=== PATIENT | male | born 1945 | race Caucasian/White ===

== ENCOUNTER 2022-10-27 22:11 | Emergency (ER) | payer MEDICARE, MEDICAID, SELFPAY ==
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
[2022-10-27 22:14] VITALS: BP 144/106; PULSE 87; RESP 20; TEMP 38.1; O2SAT 96
--- NOTE | 2022-10-27 22:25 | ECG_ITS ---
Measurements Intervals [place] Rate: 76 P: 50 WV: 203 QRS: 33 QRSD: 86 T: 29 QT: 359 QTc: 405 Interpretive Statements SINUS RHYTHM NONSPECIFIC T-WAVE ABNORMALITY NO PREVIOUS ECG AVAILABLE FOR COMPARISON Electronically Signed On 10-28-2022 11:14:18 CDT by Valentin Atwood MD
[2022-10-27] MEDS: LORazepam INJ (*CRX) 2 MG/ML VIAL IM (22:29)
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
[2022-10-27 23:36] VITALS: RESP 66
[2022-10-27 23:37] LABS: Basophils Percent Auto 0.5 % (0.2-1.2); Eosinophils Percent Auto 0.5 % (0-4.4); Hematocrit 38.5 % (42.0-52.0); Hemoglobin 12.7 g/dL (14.0-18.0); Immature Granulocyte Absolute 0.01 K/mm3 (0.00-0.031); Immature Granulocyte Percent A 0.2 % (0-0.5); Lymphocytes Absolute Auto 0.47 K/mm3 (0.9-3.2); Lymphocytes Percent Auto 7.7 % (18.3-44.2); Mean Corpuscular Hemoglobin 31.6 pg (26-34); Mean Corpuscular Volume 95.8 fl (80-100); Mean Platelet Volume 9.8 fl (7.4-10.4); Monocytes Absolute Auto 0.8 K/mm3 (0.1-0.6); Monocytes Percent Auto 12.7 % (2.6-8.5); Neutrophils Absolute Auto 4.8 K/mm3 (1.3-6.7); Neutrophils Percent Auto 78.4 % (45.5-73.1); Platelet Count Result 169 k/mm3 (150-375); Red Blood Count 4.02 M/mm3 (4.6-6.20); Red Cell Distribution Width 12.1 % (11.5-14.5); White Blood Count 6.1 K/mm3 (4.5-10.0)
[2022-10-27 23:45] VITALS: PULSE 82; RESP 23
[2022-10-27 23:46] VITALS: BP 109/69; PULSE 83; RESP 23
[2022-10-27 23:49] LABS: Acetaminophen < 10 ug/mL (10-30); Alanine Aminotransferase 17 U/L (6-50); Albumin Level 3.9 g/dL (3.5-5.1); Alkaline Phosphatase 64 U/L (38-126); Anion Gap 5 mmol/L (8-16); Aspartate Amino Transferase 20 U/L (17-59); Bilirubin,Total 0.9 mg/dL (0.2-1.3); Blood Urea Nitrogen 14 mg/dL (9-20); Calcium 8.4 mg/dL (8.4-10.2); Carbon Dioxide 23 mmol/L (22-30); Chloride 103 mmol/L (98-107); Estimated CRCL calculation 59 ml/min; Estimated Glomerular Filt Rate > 60; Ethanol < 10 mg/dL (<10); Glucose 114 mg/dL (65-110); Potassium 3.8 mmol/L (3.4-5.0); Salicylate < 1.0 mg/dL (2-20); Sodium 131 mmol/L (137-145)
[2022-10-28] VITALS (11 sets, daily range): BP systolic 100–125; BP diastolic 69–75; PULSE 66–85; RESP 16–23; O2SAT 99
[2022-10-28 00:11] LABS: Appearance Urine Clear (Clear); Bacteria Urine None Seen /hpf; Bilirubin Urine Negative (Negative); Blood Urine Negative (Negative); Color Urine Yellow (Yellow); Glucose Urine UA Negative (Negative); Ketones Urine Trace mg/dL (Negative); Leukocyte Esterase Ur Negative LEU/UL (Negative); Need Manual Microscopic Reviewed; Nitrate Urine Negative (Negative); Non Pathogenic Casts 0-2; Protein Urine Trace mg/dL (Negative); RBC Urine 0-2 /hpf (0-2); Specific Grav Ur 1.023 (1.001-1.035); Squamous Epithelial Cell Urine None seen /hpf (Few); WBC Urine 0-5 /hpf; pH Urine 6.5 (5.0-9.0)
[2022-10-28 00:12] LABS: Add Urine Microscopic? YES
[2022-10-28 00:22] LABS: Amphetamine Screen Urine Negative (Negative); Barbiturate Screen Urine Negative (Negative); Benzodiazepines Screen Urine Negative (Negative); Cannabinoid Screen Urine Negative (Negative); Cocaine Screen Urine Negative (Negative); Methadone Screen Urine Negative (Negative); Opiate Screen Urine Negative (Negative); Phencyclidine Screen Urine Negative (Negative)
[2022-10-28 00:25] LABS: Influenza A QL RT-PCR Negative (Negative); Influenza B QL RT-PCR Negative (Negative); SARS-CoV-2 RNA PCR Positive (Negative)
--- NOTE | 2022-10-28 00:58 | PC.NURSE ---
Chief Marketing Officer attempted to call report back to [facility] twice. No answer both times freelance copywriter called.
== END 2022-10-28 01:49 ==
PROVIDERS: Emergency Provider Emergency Medicine; PCP Family Medicine
DX: S09.90XA Unspecified injury of head, initial encounter (principal); U07.1 COVID-19; G30.9 Alzheimer's disease, unspecified; F02.80 Dementia in other diseases classified elsewhere, unspecified severity, without behavioral disturbance, psychotic disturbance, mood disturbance, and anxiety; I10 Essential (primary) hypertension; Z85.46 Personal history of malignant neoplasm of prostate; Z79.899 Other long term (current) drug therapy; Y04.2XXA Assault by strike against or bumped into by another person, initial encounter; Y92.89 Other specified places as the place of occurrence of the external cause
CPT/HCPCS: 36415; 70450; 70486; 72125; 80053; 80307; 81001; 84443; 85025; 87636; 93005; 96372; 99284; J2060

== ENCOUNTER 2023-05-10 23:38 | Emergency (ER) | payer MEDICARE, MEDICAID, SELFPAY ==
[2023-05-10 23:39] VITALS: BP 111/94; PULSE 84; RESP 22; TEMP 36.9; O2SAT 94
--- NOTE | 2023-05-10 23:50 | PC.NURSE ---
pt arrived with a o status of 0-1. pt began spitting on the floor. pt refused blood pressure to be taken. pt was coughing and spitting onto the [facility]/ bed/ this rn. this rn orientated pt to where he was and instructed pt to stop spitting. ths rn reapplied vital equipment to patient to get initial set of vitals. pt then began to take vital equipment of and began spitting again.
[2023-05-10 23:58] VITALS: RESP 20
--- NOTE | 2023-05-11 00:02 | PC.NURSE ---
this rn spoke with poison control about ingestion of chlorhexidine, which pharmacist states, systematic control. this RN spoke with hadley CHUA who stated the concerning systems would be GI related.
--- NOTE | 2023-05-11 00:09 | ED.GENADULT ---
HPI - General Adult General Chief complaint: Unspecified Stated complaint: drank chlorhexadine Time Seen by Provider: 05/10/23 23:58 History of Present Illness HPI narrative: This is a 77-year-old male sent from the dementia unit for possibly drinking chlorhexidine. The staff there were concerned that he may have drinks chlorhexidine. They did not tell us why they thought that. The patient is A&O x1 and cannot provide any useful information during the interview. Patient is not vomiting. Related Data Allergies Allergy/AdvReac Type Severity Reaction Status Date / Time No Known Allergies Allergy Unverified 10/27/22 22:28 [facility] Past Medical History Medical History Alzheimer's dementia B12 deficiency Benign essential HTN Gallbladder & bile duct stone, acute cholecystitis and obstruction Prostate cancer Surgical History Surgical History H/O radical prostatectomy Hx laparoscopic cholecystectomy Family History Family History Father , 79 yrs old Carcinoma of colon Social History Social History Social History: Smoking status: Never smoker Second hand tobacco smoke exposure: No Alcohol intake: never Substance use: never Substance use type: does not use Living arrangements: with family Additional living arrangements comments: living with his brother Occupation/Education: retired Gender identity (if verbalized by the patient): Male Sexual Orientation (if Verbalized by the Patient): Straight or Heterosexual Exam Narrative: APPEARANCE: No apparent distress. A&O x1 Head: atraumatic. EYES: EOMI, NOSE: Atraumatic NECK: Trachea midline RESPIRATORY: No increased rate of breathing CTAB CARDIOVASCULAR: RRR, ABDOMINAL: Non-distended soft nontender MUSCULOSKELETAl: No obvious deformities NEURO: Alert. Moving 4/4 extremities SKIN:: Warm, dry. Normal color PSYCHIATRIC: Normal affect Course Vital Signs Vital signs: Vital Signs Temperature 98.4 F 05/10/23 23:39 Pulse Rate 84 05/10/23 23:39 Respiratory Rate 22 H 05/10/23 23:39 Blood Pressure 111/94 H 05/10/23 23:39 Pulse Oximetry 94 05/10/23 23:39 Oxygen Delivery Room Air 05/10/23 23:39 Temperature 98.4 F 05/10/23 23:39 Pulse Rate 84 05/10/23 23:39 Respiratory Rate 20 05/10/23 23:58 Blood Pressure 111/94 H 05/10/23 23:39 Pulse Oximetry 94 05/10/23 23:39 Oxygen Delivery Room Air 05/10/23 23:39 Medical Decision Making MDM Narrative Medical decision making narrative: -Course: 77-year-old male presenting from the dementia unit for possibly adjusting have lot of chlorhexidine. Poison control contacted. No concern for toxicity. Patient is asymptomatic and at his baseline mental status. Vital signs stable. discharged back to the senior living Vital Signs Vital Signs: Vital Signs Temperature 98.4 F 05/10/23 23:39 Pulse Rate 84 05/10/23 23:39 Respiratory Rate 22 H 05/10/23 23:39 Blood Pressure 111/94 H 05/10/23 23:39 Pulse Oximetry 94 05/10/23 23:39 Oxygen Delivery Room Air 05/10/23 23:39 Temperature 98.4 F 05/10/23 23:39 Pulse Rate 84 05/10/23 23:39 Respiratory Rate 20 05/10/23 23:58 Blood Pressure 111/94 H 05/10/23 23:39 Pulse Oximetry 94 05/10/23 23:39 Oxygen Delivery Room Air 05/10/23 23:39 Discharge Plan Discharge Clinical Impression: Chlorhexidine exposure Patient Disposition: Home, Self-Care Condition: Stable Instructions: Antibiotic Form, Dementia (ED) Additional Instructions: Please do not drink antiseptics. Prescriptions: No Action (DME) Monoject Hypodermic [place] 25 gauge x 1 1/4 needle See Rx Instructions .Route Qty: 300 0RF Rx Instructions: for IM B12 injec
--- NOTE | 2023-05-11 00:16 | PC.NURSE ---
this rn spoke with JERRELL Yates at [facility] to give report about pt coming back and being discharged from this facility.
== END 2023-05-11 01:02 ==
PROVIDERS: Emergency Provider Emergency Medicine; PCP Family Medicine
DX: Z77.9 Other contact with and (suspected) exposures hazardous to health (principal); G30.9 Alzheimer's disease, unspecified; F02.80 Dementia in other diseases classified elsewhere, unspecified severity, without behavioral disturbance, psychotic disturbance, mood disturbance, and anxiety; I10 Essential (primary) hypertension; Z85.46 Personal history of malignant neoplasm of prostate; Z90.79 Acquired absence of other genital organ(s); Z90.49 Acquired absence of other specified parts of digestive tract
CPT/HCPCS: 99281

== ENCOUNTER 2023-05-13 21:43 | Emergency (ER) | payer MEDICARE, MEDICAID, SELFPAY ==
[2023-05-13 21:37] VITALS: BP 139/91; PULSE 78; RESP 15; TEMP 36.8; O2SAT 100
[2023-05-13 22:03] VITALS: BP 140/75; PULSE 66; RESP 15; O2SAT 98
--- NOTE | 2023-05-13 22:03 | PC.NURSE ---
Nurse from [facility] called and states that patient had a low grade fever , but nothing was given. Nurse also states the patient's only past medical hx is Alzheimer's and Dementia.
--- NOTE | 2023-05-13 22:04 | PC.NURSE ---
COVID, RSV, and Flu A/B swab obtained
[2023-05-13 22:30] VITALS: BP 130/66; PULSE 73; RESP 19; O2SAT 95
[2023-05-13 22:40] LABS: Influenza A QL RT-PCR Negative (Negative); Influenza B QL RT-PCR Negative (Negative); RSV RNA, RT-PCR Negative (Negative); SARS-CoV-2 RNA PCR Positive (Negative)
--- NOTE | 2023-05-13 23:10 | ED.GENADULT ---
HPI - General Adult General Chief complaint: Fever Stated complaint: FEVER, HIGH B/P Time Seen by Provider: 05/13/23 22:49 Source: patient Mode of arrival: ambulatory Limitations: dementia History of Present Illness HPI narrative: This is a 77-year-old male who presents to the ED via EMS from shelter. They are sending him over today for evaluation of fevers and elevated blood pressure. Patient is alert oriented x1 and has been at baseline for shelter and EMS. He is also A&O x1, responds to his name. Wound was able to speak with family and they are confirming that he has a progressing Alzheimers over the past year so. They confirm that this does sound like his baseline. I am unable to obtain any useful information from the patient. Related Data Allergies Allergy/AdvReac Type Severity Reaction Status Date / Time No Known Allergies Allergy Unverified 10/27/22 22:28 Review of Systems Review of Systems: All systems as dictated in HPI PMFSH Past Medical History Medical History Alzheimer's dementia B12 deficiency Benign essential HTN Gallbladder & bile duct stone, acute cholecystitis and obstruction Prostate cancer Surgical History Surgical History H/O radical prostatectomy Hx laparoscopic cholecystectomy Family History Family History Father , 79 yrs old Carcinoma of colon Social History Social History Social History: Smoking status: Never smoker Second hand tobacco smoke exposure: No Alcohol intake: never Substance use: never Substance use type: does not use Living arrangements: with family Additional living arrangements comments: living with his brother Occupation/Education: retired Gender identity (if verbalized by the patient): Male Sexual Orientation (if Verbalized by the Patient): Straight or Heterosexual Exam Narrative: GENERAL: Well-appearing, well-nourished, and in no acute distress. HEAD: Normocephalic, atraumatic. EYES: PERRLA and EOMI. ENT: Nares clear, no rhinorrhea or epistaxis. Mucous membranes moist. Oropharynx without tonsillar hypertrophy exudate or other lesions. NECK: Supple. No adenopathy or masses. CHEST: No respiratory distress. Clear to auscultation. No wheezes rales or rhonchi HEART: Regular rate and rhythm. No murmur heard. Normal peripheral pulses. ABDOMEN: Soft, nontender, nondistended, normal active bowel sounds. MSK: Normal range of motion. No edema. SKIN: Warm, dry, no rash. NEURO: Alert and oriented x1. No focal deficits. PSYCH: Normal mood and affect. Course Vital Signs Vital signs: Vital Signs Temperature 98.2 F 05/13/23 21:37 Pulse Rate 78 05/13/23 21:37 Respiratory Rate 15 05/13/23 21:37 Blood Pressure 139/91 H 05/13/23 21:37 Pulse Oximetry 100 05/13/23 21:37 Oxygen Delivery Room Air 05/13/23 21:37 Temperature 98.1 F 05/14/23 00:29 Pulse Rate 65 05/14/23 00:29 Respiratory Rate 15 05/14/23 00:29 Blood Pressure 142/76 H 05/14/23 00:29 Pulse Oximetry 99 05/14/23 00:29 Oxygen Delivery Room Air 05/13/23 21:37 Medical Decision Making MDM Narrative Medical decision making narrative: This is a 69-year-old male who presents to the ED from shelter with chief complaint of fever and elevated blood pressure. Per shelter staff, EMS and our staff patient is alert oriented x1 and at baseline. On exam he response to his name being called which is his normal behavior. He has advanced dementia with Alzheimer's. Are vital signs show very slightly elevated blood pressure at 142/76, well within the normal limits for his age range. He is afebrile here. Oxygen is normal and respiratory exam is normal. Viral swabs are positive for COVID. I d
[2023-05-14 00:29] VITALS: BP 142/76; PULSE 65; RESP 15; TEMP 36.7; O2SAT 99
== END 2023-05-14 00:31 ==
PROVIDERS: Emergency Medicine; Emergency Provider Physician Assistant; PCP Family Medicine
DX: U07.1 COVID-19 (principal); G30.9 Alzheimer's disease, unspecified; F02.80 Dementia in other diseases classified elsewhere, unspecified severity, without behavioral disturbance, psychotic disturbance, mood disturbance, and anxiety; E53.8 Deficiency of other specified B group vitamins; Z85.46 Personal history of malignant neoplasm of prostate; Z90.79 Acquired absence of other genital organ(s); Z90.49 Acquired absence of other specified parts of digestive tract
CPT/HCPCS: 87637; 99283